=== PATIENT | female | born 1990 | race Caucasian/White ===

== ENCOUNTER 2020-07-07 18:53 | Emergency (ER) | payer OTHER ==
[2020-07-07 18:59] VITALS: BMI 17.0
[2020-07-08 00:08] VITALS: BP 103/62; PULSE 103; TEMP 97.9
== END 2020-07-07 23:35 | disposition home or self-care (01) ==
LOC: JER 18:53
DX: O26.892 Other specified pregnancy related conditions, second trimester (principal); R10.30 Lower abdominal pain, unspecified; R09.81 Nasal congestion; Z3A.26 26 weeks gestation of pregnancy
CPT/HCPCS: 87070; 87880; 99283-25; C9803; U0003